=== PATIENT | female | born 1975 | race Caucasian/White ===

== ENCOUNTER 2024-10-22 15:28 | Outpatient (AMB) | payer OTHER, SELFPAY ==
[2024-10-22 15:40] VITALS: BP 128/83; PULSE 79; RESP 16; TEMP 36.8; O2SAT 99; BMI 27.3
--- NOTE | 2024-10-22 15:40 | GYNCLNT_ITS ---
Vital Signs 10/22/24 15:40 Height 1.63 m Height Method Stated Weight 72.121 kg Weight Measurement Method Standing Scale BMI 27.3 BP 128/83 Blood Pressure Source Automatic Cuff Blood Pressure Location Left Upper Arm Position Sitting Respiration 16 Pulse 79 Pulse Source Monitor Temp 98.3 F Temp Source Oral Pulse Oximetry (%) 99 Oxygen Delivery Method Room Air Allergies/Home Meds Allergies & Medications Allergies No Known Allergies Allergy (Verified 10/22/24 15:41) Medication Reconciliation No Known Home Medications 10/22/24 [History Confirmed 10/22/24] Intake Visit Data Collection New Patient or Established: New Patient (never been to [facility]) Reason for Visit:: Abnormal uterine bleeding Seen by Clinical Staff ONLY (RN/MA): No Database Management System Specialist Required: No Do You Feel Safe at Home: Yes Authorities Contacted: N/A PCP or OBGYN visit in last 3 months: No Hx Now: No Are you currently on any form of Control: No Pain Present Currently: No Pain Scale Used: Lester-Barrow/Numerical Pain scale:: 0 Smoking Status Smoking Status: Never smoker 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 1. Little interest or pleasure in doing things: not at all 2. Feeling down, depressed, or hopeless: not at all Total score: 0 PHQ-9 3. Trouble falling or staying asleep, or sleeping too much: Not at all 4. Feeling tired or having little energy: Not at all 5. Poor appetite or overeating: Not at all 6. Feeling bad about yourself - or that you are a failure or have let yourself or your family down: Not at all 7. Trouble concentrating on things, such as reading the newspaper or watching television: Not at all 8. Moving or speaking so slowly that other people could have noticed? - Or the opposite - being so fidgety or restless that you have been moving around a lot more than usual: not at all 9. Thoughts that you would be better off or of hurting yourself in some way: Not at all Total score: 0 If you checked off any problems, how difficult have these problems made it for you to do your work, take care of things at home, or get along with other people?: not difficult at all Source: Developed by Drs. Miguelito Mora, Leana Vyas, Tian Sher and colleagues, with an educational kervin from [employer]. 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 Six months ago, she experienced issues with medication coverage due to insurance changes, resulting in severe migraines. She temporarily used [id number] hormones to manage symptoms. Recently, the patient experienced a period lasting 20 days, causing anemia and dizziness. A month and a half later, she had another heavy bleeding episode with pure blood without clotting. While on hormones, she had regular periods, but they were not as heavy. An ultrasound on August 28 showed a normal uterus measuring 9.2 cm with a 12 mm endometrial stripe. 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 The patient reports ongoing issues with migraines, dizziness, and vomiting during her periods. She has tried various hormone formulations, including compounded cream, estradiol 1 mg, and progesterone 200 mg. Side effects included weight fluctuations of 15 pounds and increased sleepiness. She was prescribed metoprolol for migraines, which was ineffective, and later given a drug for acute attacks that numbs the pain but doesn't prevent migraines. The patient's most recent menstrual cycle was stopped by her OBGYN nurse practitioner on August 23 due to dizziness and low blood pressure, using a high dose of n orethindrone. The patient is concerned about potential flare-ups of Lyme disease with Bartonella if undergoing procedures like ablation and feels overwhelmed by the complexity of her treatment regimen. Diagnostic Test Results and Labs: - Ultrasound (08-28-2024): Normal uterus measuring 9.2 cm with a 12 mm endometrial stripe. 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 - Hormone panel (Date N/A): FSH level of 14.1, indicating ovarian and hypothalamic axis function. Review of Systems Review of Systems Systems Reviewed: All systems reviewed, normal except as documented Exam General Limitations: no limitations General Appearance: alert, in no apparent distress, comfortable, cooperative, healthy appearing, well developed and well groomed Head Head exam: atraumatic, normocephalic and normal inspection Neck Neck exam: Present normal inspection, full ROM and trachea midline Chest Chest inspection: Present normal inspection and symmetric chest wall rise Abdominal Abdominal exam: Present soft and normal bowel sounds Extremities Extremities exam: Present normal inspection and full ROM Back Back exam: Present normal inspection and full ROM Psych Psychiatric exam: Present normal affect and normal mood Skin Skin exam: Present warm, dry, intact and normal color Assessment & Plan Diagnosis / Problem List (1) Lyme disease, unspecified: Status: Acute Plan: History of Lyme Disease with Bartonella: - Consider referral to evaluation assistant or Lyme disease specialist for further evaluation and management. - Coordinate care with specialists to address comprehensive health needs. (2) Abnormal uterine bleeding (AUB): Status: Acute Plan: - Discontinue progesterone completely for the next cycle. - Continue estradiol 1 mg daily. - Return for follow-up in 5 weeks. - For subsequent cycles, time progesterone from day 10 to day 24 of the cycle. - Track menstrual cycle using an angelina. - If bleeding lasts more than 3-4 days with clots or extends to 20 days, return to clinic immediately. - Consider potential flare-ups of Lyme disease with procedures like ablation. 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 - Consider further imaging or specialist referral if symptoms persist or worsen. (4) Migraine headache without aura: Status: Acute Plan: Chronic Migraines: - Continue using prescribed Triptan for acute migraine attacks. - Refer to internal medicine for comprehensive migraine management. - Consider beta-flaquita (e.g., propranolol) or calcium channel flaquita for migraine prevention. - Address side effects and ineffectiveness of previous treatments. Additional Plan Follow Up: 5 Weeks Office Procedures OB Clinic LOC & Office Proc's Nursing/Assessment Patient Status: Initial/New Patient OB Clinic Nursing Assessment: BP Monitoring, Medication Reconciliation, Update PMH in EMR and Vital Signs OB Clinic Coordination of Care: Consent,records obtained, informed consent, Education Simp Pt/Fam, Lab and Imaging orders and Staff clarify orders New Patient Charge New Patient Point Assignment: [id number] New Patient Point Charge: REHAB TRAINER Level 3 ([id number])
== END 2024-10-22 16:17 | disposition home or self-care (01) ==
LOC: HODSOBC 15:28
PROVIDERS: Supervising Provider Obstetrics & Gynecology; Visit Provider Obstetrics & Gynecology
DX: N93.9 Abnormal uterine and vaginal bleeding, unspecified (principal); N94.89 Other specified conditions associated with female genital organs and menstrual cycle; A69.20 Lyme disease, unspecified; G43.009 Migraine without aura, not intractable, without status migrainosus
CPT/HCPCS: 99203; G0463

== ENCOUNTER 2025-01-31 08:45 | Outpatient (AMB) | payer OTHER, SELFPAY ==
[2025-01-31 09:00] VITALS: BP 108/75; PULSE 65; RESP 18; TEMP 36.2; O2SAT 98; BMI 28.5
--- NOTE | 2025-01-31 09:00 | AMB.GYNCLNOT ---
Vital Signs 01/31/25 09:00 Height 1.63 m Height Method Stated Weight 75.75 kg Weight Measurement Method Standing Scale BMI 28.5 BP 108/75 Blood Pressure Source Automatic Cuff Blood Pressure Location Left Upper Arm Position Sitting Respiration 18 Pulse 65 Pulse Source Monitor Temp 97.2 F Temp Source Oral Pulse Oximetry (%) 98 Oxygen Delivery Method Room Air Allergies/Home Meds Allergies & Medications Allergies No Known Allergies Allergy (Verified 01/31/25 09:01) Medication Reconciliation estradiol 1 mg tablet 1 mg PO QDAY 30 days #30 tabs 10/22/24 [Rx Confirmed 01/31/25] Intake Visit Data Collection New Patient or Established: Established Patient (seen at [facility] within 3 years) Reason for Visit:: FOLLOW UP Seen by Clinical Staff ONLY (RN/MA): No Stove Mounter Required: No Do You Feel Safe at Home: Yes Authorities Contacted: N/A PCP or OBGYN visit in last 3 months: Yes Date of Last PCP or OBGYN visit: 10/22/24 Hx Now: No Are you currently on any form of Control: No Last menstrual period: 01/04/25 Pain Present Currently: No Pain Scale Used: Lester-Barrow/Numerical Pain scale:: 0 Smoking Status Smoking Status: Never smoker 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 1. Little interest or pleasure in doing things: not at all 2. Feeling down, depressed, or hopeless: not at all Total score: 0 PHQ-9 3. Trouble falling or staying asleep, or sleeping too much: Not at all 4. Feeling tired or having little energy: Not at all 5. Poor appetite or overeating: Not at all 6. Feeling bad about yourself - or that you are a failure or have let yourself or your family down: Not at all 7. Trouble concentrating on things, such as reading the newspaper or watching television: Not at all 8. Moving or speaking so slowly that other people could have noticed? - Or the opposite - being so fidgety or restless that you have been moving around a lot more than usual: not at all 9. Thoughts that you would be better off or of hurting yourself in some way: Not at all Total score: 0 If you checked off any problems, how difficult have these problems made it for you to do your work, take care of things at home, or get along with other people?: not difficult at all Source: Developed by Drs. Miguelito Mora, Leana Vyas, Tian Sher and colleagues, with an educational kervin from [employer]. Depression screen completed yes Social History Living Situation History Lives With: Family Housing: House Tobacco History Smoking Status: Never smoker Second Hand Smoke Exposure: No Alcohol History Alcohol Intake: Never Domestic Abuse History Do You Feel Safe at Home: Yes History of Present Illness HPI Narrative Patient reports having gone 3 months without a menstrual period before experiencing a pretty darn normal cycle last month. She states that since discontinuing progesterone, her menstrual bleeding has normalized without the previous issues of clotting or significant cramping. However, she continues to experience migraines and rashes. Xochitl notes that she only experiences hot flushes right before her period. Patient reports significant weight gain that has been resistant to diet and exercise. She describes following a non-inflammatory diet with measured portions of vegetables and protein, but has been unable to lose weight despite strict adherence. She mentions experiencing horrible energy levels, often feeling so tired that she has to close her eyes for a few minutes during the day because she can't control it. She attributes this to withdrawing from hormones but notes that she forces herself to stay busy despite the fatigue. She is not currently taking any hormone replacement therapy, including estradiol or progesterone, as she was advised to hold off until having another period. She expresses concern about being really sensitive to hormones and prefers the idea of a very low dose or transdermal patch if hormone therapy is reintroduced. She has a history of perimenopause, migraines, and rashes. Previously, she was taking progesterone and estradiol, both of which have been discontinued. She was also prescribed Prozac at high doses by a previous provider, which has been discontinued. Patient reports being busy, suggesting employment. She has recently followed a strict non-inflammatory diet with measured portions of vegetables and protein (6 ounces) and engaged in an exercise program along with the diet. Exam General General Appearance: alert, in no apparent distress and healthy appearing Head Head exam: atraumatic Neck Neck exam: Present normal inspection and trachea midline Chest Chest inspection: Present normal inspection and symmetric chest wall rise External exam: Present normal external exam; Absent tenderness Neuro Neurological exam: Present oriented X3 Psych Psychiatric exam: Present normal affect and normal mood Office Procedures OB Clinic LOC & Office Proc's Nursing/Assessment Patient Status: Established Patient OB Clinic Nursing Assessment: Medication Reconciliation, Update PMH in EMR and Vital Signs OB Clinic Coordination of Care: Education Complex Pt/Fam, Consent,records obtained, informed consent, Lab and Imaging orders and Staff clarify orders Established Patient Charge Established Patient Point Assignment: 80 Established Patient Point Charge: EP Level 3 (80-115) Assessment & Plan Diagnosis / Problem List (1) Migraine headache without aura: Status: Acute (2) Female pelvic congestion syndrome: Status: Acute (3) Abnormal uterine bleeding (AUB): Status: Acute (4) Lyme disease, unspecified: Status: Acute Plan Perimenopausal Symptoms Plan: - Order thyroid panel, FSH, and estradiol for baseline hormone levels. - Order lipid panel and comprehensive metabolic panel. - Review lab results in 2 weeks. - Defer restarting hormone replacement therapy pending lab results and next menstrual cycle. - Follow up in 2 weeks to discuss lab results and reassess symptoms. Fatigue Plan: - Monitor energy levels over the next few weeks as hormone levels stabilize. - Reassess at follow-up appointment in 2 weeks. Migraines Plan: - Recommend consultation with an internal medicine physician or neurologist for proper management. - Provide list of recommended physicians for patient to cross-reference with insurance network. Weight Gain Plan: - Evaluate thyroid function and metabolic profile through ordered lab tests. - Reassess weight management strategies at follow-up appointment after reviewing lab results.
== END 2025-01-31 09:34 | disposition home or self-care (01) ==
LOC: HODSOBC 08:45
PROVIDERS: Supervising Provider Obstetrics & Gynecology; Visit Provider Obstetrics & Gynecology
DX: N93.9 Abnormal uterine and vaginal bleeding, unspecified (principal); G43.009 Migraine without aura, not intractable, without status migrainosus; N94.89 Other specified conditions associated with female genital organs and menstrual cycle; A69.20 Lyme disease, unspecified; R63.5 Abnormal weight gain; Z68.28 Body mass index [BMI] 28.0-28.9, adult
CPT/HCPCS: 99213; G0463